=== PATIENT | male | born 1980 | race Caucasian/White ===

== ENCOUNTER 2024-12-08 16:29 | Emergency (ER) | payer OTHER ==
[2024-12-08 16:36] VITALS: BMI 30.2
[2024-12-08] MEDS ORDERED: METOCLOPRAMIDE HCL INJECTION 10 MG/2 ML VIAL ONE (17:16)
[2024-12-08] MEDS ORDERED: ACETAMINOPHEN INJECTION 100 ML ONE (17:17)
[2024-12-08 17:21] LABS: ABSOLUTE IMMATURE GRANULOCYTES 0.03 x10^3/uL (0.0-0.031); BASOPHILS # 0.04 x10^3/uL (0.01-0.08); EOSINOPHIL % 1.1 % (0.8-7.0); EOSINOPHILS # 0.06 x10^3/uL (0.04-0.54); MCHC 32.8 g/dl (32.3-36.5); MEAN CELL VOLUME 83.1 fl (79.0-92.2); MEAN PLT VOLUME 9.8 fl (9.4-12.4); MONOCYTE # 0.51 x10^3/uL (0.30-0.82); MONOCYTE % 9.0 % (5.3-12.2); RDW 12.9 % (12.1-15.9)
[2024-12-08] MEDS: ACETAMINOPHEN 1000 MG/100 ML BAG IVPB ONE (17:22)
[2024-12-08] MEDS: SODIUM CHLORIDE 0.9% 500 ML INFUS.BAG IV ONE (17:22)
[2024-12-08 17:30] LABS: INR 0.98 (0.83-1.09); PROTHROMBIN TIME (PATIENT) 10.7 SEC (9.7-13.0)
[2024-12-08 17:32] LABS: ACTIVATED PTT 24.3 SECONDS (25.2-36.5)
[2024-12-08] MEDS: METOCLOPRAMIDE HCL INJECTION 10 MG/2 ML VIAL IVPB ONE (17:32)
[2024-12-08] MEDS ORDERED: FLUORESCEIN NA 1 EA STRIP ONE (17:34)
[2024-12-08] MEDS ORDERED: TETRACAINE 0.5% OPHTH SOLN 2 ML BOTTLE ONE (17:34)
[2024-12-08 17:44] LABS: GLUCOSE,RANDOM 113.0 mg/dL (74-106)
[2024-12-08 17:45] LABS: TOT PROT 7.7 g/dl (6.4-8.2)
[2024-12-08 17:46] LABS: CO2 22.0 mmol/L (21-32)
[2024-12-08 17:47] LABS: ALK PHOS 79.0 U/L (40-150)
[2024-12-08 17:50] LABS: CREATININE 1.03 mg/dL (0.55-1.3); SGOT/AST 43.0 U/L (5-34); SGPT/ALT 86.0 U/L (0-55)
[2024-12-08 19:13] LABS: HCV DIAGNOSTIC IN-HOUSE W/RFLX NON-REACTIVE (NONREACTIVE); HIV INTERPRETATION NEGATIVE (NEGATIVE)
[2024-12-08] MEDS: FLUORESCEIN NA 1 EA STRIP OS ONE (19:47)
[2024-12-08] MEDS: TETRACAINE 0.5% HCL 0.6ML DROPPER.BOTTLE OS ONE (19:48)
[2024-12-08 20:00] LABS: URINE APPEARANCE CLEAR; URINE BILIRUBIN NEGATIVE (NEGATIVE); URINE COLOR YELLOW; URINE GLUCOSE (UA) NEGATIVE (NEGATIVE); URINE KETONE NEGATIVE (NEGATIVE); URINE LEUK ESTERASE NEGATIVE (NEGATIVE); URINE NITRITE NEGATIVE (NEGATIVE); URINE PROTEIN NEGATIVE (NEGATIVE); URINE UROBILINOGEN 0.2 mg/dL (0.2-1.0)
[2024-12-08 20:18] VITALS: BP 160/91; PULSE 78; RESP 18; TEMP 98
== END 2024-12-08 21:31 | disposition home or self-care (01) ==
LOC: JER 16:29
PROC: 3E033NZ Introduction of Analgesics, Hypnotics, Sedatives into Peripheral Vein, Percutaneous Approach (ICD-10-PCS; principal; 2024-12-08)
PROC: 3E033GC Introduction of Other Therapeutic Substance into Peripheral Vein, Percutaneous Approach (ICD-10-PCS; 2024-12-08)
DX: R51.9 Headache, unspecified (principal); H54.7 Unspecified visual loss; R07.89 Other chest pain; R25.1 Tremor, unspecified; R00.0 Tachycardia, unspecified; I10 Essential (primary) hypertension
CPT/HCPCS: 36415; 70450-TC; 71046-TC-FY; 80053; 81003; 83690; 84484; 85025; 85610; 85730; 86803; 87086; 87389; 87637-QW; 93005; 93010; 99285-25